=== PATIENT | male | born 1975 | race Caucasian/White ===

== ENCOUNTER → 2018-07-27 | Outpatient (CLI) | payer OTHER | LOC: M PLARAD 16:08 | DX: R91.8 Other nonspecific abnormal finding of lung field (principal) | CPT/HCPCS: 78815 ==

== ENCOUNTER → 2019-03-21 | Outpatient (CLI) | payer OTHER ==
[~2019-03-21] MED LIST: CETI10TA PO; ESCI10TA2 PO; FLON1SPR NARES; ISOVUE-370 76% 100ML VIAL (Q9967) As Ordered ONE
--- NOTE | 2019-03-21 17:25 | REP ---
Clinical: Pulmonary arterial aneurysm. Technique: Axial contrast enhanced images from the thoracic inlet to the upper abdomen with coronal and sagittal re-formations using 100 ml Isovue 370 intravenous contrast material. Comparison: Outside examination dated 09/11/2017. Findings: The pulmonary trunk is again noted to be somewhat ectatic in the axial plane measuring approximately 5.2 by 4.3 cm diameter. Findings appear relatively stable. Bilateral main pulmonary arteries are normal in appearance. Thoracic aorta and heart/pericardium are normal. There is no evidence for aortic aneurysm or dissection. No cardiomegaly. No pericardial effusion. Bilateral lung mcguire are well-aerated with minimal posterior basilar dependent changes likely transient in nature. No consolidation, significant nodule, or mass lesion. 3 mm nodule in the periphery of the left lower lobe identified on prior examination remain stable. No pleural effusion. No pneumothorax. Tracheobronchial tree is patent. No adenopathy. Surrounding musculoskeletal structures are intact. Impression: 1. 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 2. Stable 3 mm nodule in the periphery of the left lower lobe. 3. No acute mediastinal or pleuroparenchymal process. Electronically Signed by Roderick Paul MD 03/21/2019 05:17 P
== END ==
LOC: M RAD 16:07
PROVIDERS: ATTEND Surgery Vascular Surgery
DX: I28.1 Aneurysm of pulmonary artery (principal); R91.1 Solitary pulmonary nodule
CPT/HCPCS: 71275; Q9967

== ENCOUNTER → 2020-12-19 | Outpatient (CLI) | payer BC, OTHER ==
[~2020-12-19] MED LIST changes: +ARIP1TAB4 PO; +DULO1CAP6 PO; +ESCI10TA16 PO; -ESCI10TA2 PO; -ISOVUE-370 76% 100ML VIAL (Q9967) As Ordered ONE; +ISOVUE-370 76% 100ML VIAL As Ordered ONE
--- NOTE | 2020-12-19 10:00 | REP ---
INDICATION: ANEURYSM OF OTHER SPECIFIED ARTERIES. COMPARISON: Comparison CT study March 21, 2019.. TECHNIQUE: Helical scanning is acquired following the intravenous injection of 75 mL of Isovue 370. 3 mm axial images re-formatted. Coronal and sagittal MPR coronal and sagittal MIP images are provided. FINDINGS: There is good opacification in the pulmonary arterial tree. There is no evidence of vessel cut off or filling defect to suggest pulmonary embolus. Homogeneous opacity is seen in the thoracic aorta. There is no evidence of aneurysm or dissection. There is aneurysmal dilation of the main pulmonary artery again noted unchanged from the prior study. Main pulmonary artery measures 5.2 cm in right to left dimension as before. Ascending aorta is unchanged as well measuring 3.8 cm in AP dimension. The right ventricle appears somewhat enlarged. Interventricular septum is normal in contour and appearance, bowing towards the right ventricle. No pericardial or pleural effusion is seen. No valvular calcification is seen. Lung window settings demonstrate no mass or infiltrate is seen. There is a small 3 mm nodule in the left lower lobe posteriorly seen previously and unchanged. In the upper abdomen, adrenal glands are normal. The visualized upper abdominal structures are unremarkable. 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 Somewhat prominent rib right ventricle. Otherwise no acute disease.. <Electronically signed by Indio Ding > 12/19/20 0931
== END ==
LOC: M RAD 08:39
PROVIDERS: ATTEND Surgery Vascular Surgery
DX: I72.8 Aneurysm of other specified arteries (principal)